=== PATIENT | male | born 2000 | race Caucasian/White ===

== ENCOUNTER 2022-06-24 18:26 | Emergency (ER) | payer MEDICAID ==
[~2022-06-24] VITALS: Ht 175.3 cm; Wt 63.6 kg
[2022-06-24 18:37] VITALS: BP 137/86
[2022-06-24] MEDS ORDERED: gabapentin 100mg capsule PO ONE (19:45)
[2022-06-24] MEDS ORDERED: VALA10002 PO (19:52)
[2022-06-24] MEDS ORDERED: ONDA4TAB12 PO (19:52)
[2022-06-24] MEDS ORDERED: GABA-530 PO (19:52)
== END 2022-06-24 20:16 | disposition home or self-care (01) ==
LOC: ER 18:27
DX: B02.9 Zoster without complications (principal)
CPT/HCPCS: 99283

== ENCOUNTER 2023-06-21 05:35 | Emergency (ER) | payer MEDICAID ==
[~2023-06-21] VITALS: Ht 175.3 cm; Wt 61.4 kg
[~2023-06-21 05:35] MED LIST: GABA-530 PO; ONDA4TAB12 PO; VALA10002 PO
[2023-06-21 05:38] VITALS: BP 139/88; PULSE 96; RESP 18; TEMP 97.2; O2SAT 100
== END 2023-06-21 07:30 | disposition left against medical advice (07) ==
LOC: ER 05:35
DX: B35.6 Tinea cruris (principal); Z79.899 Other long term (current) drug therapy
CPT/HCPCS: 99281

== ENCOUNTER 2023-06-26 20:47 | Emergency (ER) | payer MEDICAID ==
[~2023-06-26] VITALS: Ht 175.3 cm; Wt 60.4 kg
[2023-06-27] MEDS ORDERED: CLOT15CR73 TP (00:54)
[2023-06-27 01:27] VITALS: BP 128/55; PULSE 89; RESP 16; TEMP 98.7; O2SAT 98
== END 2023-06-27 01:28 | disposition home or self-care (01) ==
LOC: ER 20:47
DX: B35.6 Tinea cruris (principal); Z79.899 Other long term (current) drug therapy
CPT/HCPCS: 99283